=== PATIENT | male | born 1985 ===

== ENCOUNTER 2018-05-04 08:39 | Emergency (ER) | payer OTHER ==
[~2018-05-04] VITALS: Ht 162.6 cm; Wt 60.8 kg
[2018-05-04] MEDS ORDERED: WELLBUTRIN XL150 M1 (09:24)
[2018-05-04] MEDS ORDERED: ADDERALL 10 MG10 MG (09:25)
== END 2018-05-04 10:48 ==
LOC: ER 08:39
DX: H92.02 Otalgia, left ear (principal); J00 Acute nasopharyngitis [common cold]